=== PATIENT | female | born 1985 | race Caucasian/White ===

== ENCOUNTER 2023-02-21 11:20 | Day surgery (SDC) | payer OTHER ==
[~2023-02-21] VITALS: Ht 154.9 cm; Wt 70.3 kg
[2023-02-21] MEDS ORDERED: fentaNYL citrate 0.05 MG/ML VIAL ONE (12:54)
[2023-02-21] MEDS ORDERED: MIDAZOLAM 2 MG/2 ML VIAL ONE (12:54)
[2023-02-21] MEDS ORDERED: MIDAZOLAM 5 MG/5 ML VIAL IV ONE (14:30)
== END 2023-02-21 14:01 | disposition home or self-care (01) ==
LOC: MDS 11:20 → MMU 11:45 → MDS 14:01
PROVIDERS: ATTEND Internal Medicine Gastroenterology
DX: R13.10 Dysphagia, unspecified (principal); K44.9 Diaphragmatic hernia without obstruction or gangrene; M79.7 Fibromyalgia; Z90.49 Acquired absence of other specified parts of digestive tract; Z79.899 Other long term (current) drug therapy
CPT/HCPCS: 43235; J2250; J3010

== ENCOUNTER 2024-01-09 11:31 | Day surgery (SDC) | payer OTHER ==
[~2024-01-09] VITALS: Ht 154.9 cm; Wt 70.8 kg
[2024-01-09] MEDS ORDERED: fentaNYL citrate 0.05 MG/ML VIAL ONE (14:32)
[2024-01-09] MEDS: fentaNYL citrate 0.05 MG/ML VIAL IVP ONE (14:37)
== END 2024-01-09 15:35 | disposition home or self-care (01) ==
LOC: MDS 11:31 → MMU 12:56 → MDS 15:35
PROVIDERS: ATTEND Internal Medicine Gastroenterology
DX: K62.5 Hemorrhage of anus and rectum (principal); M79.7 Fibromyalgia; Z98.51 Tubal ligation status; Z98.891 History of uterine scar from previous surgery; Z79.899 Other long term (current) drug therapy; Z98.890 Other specified postprocedural states
CPT/HCPCS: 45330; J3010